=== PATIENT | female | born 1960 | race Caucasian/White ===

== ENCOUNTER 2020-03-10 09:59 | Outpatient (REF) | payer BC, SELFPAY ==
--- NOTE | 2020-03-10 09:20 | PAPFT_PTH ---
PATIENT: Maci Aranda LOC: [facility] U#:[id number] AGE/SX: 59/F ROOM: RE03/10/[address]: Sumi Montemayor NP : 1960 BED: DIS: 03/10/2020 SPEC #: [id number] RECD: 03/10/20 13:10 STATUS: BRANDEN REKenji #: [id number] SHAW: 03/10/20 09:[address]: Sumi Montemayor NP DEPT: [facility] Cytology RECD BY: Felicita Terrazas ENTERED: 03/10/20 13:11 SP TYPE: PAPFT OTHR DR: Cody Taveras Tissues: 1 - CX/ENDOCX FOR PAP SMEARS Procedures: PAP THIN PREP/[facility] Screening HPV DNA PROBE Comments: [id number] ([id number] [facility])
== END 2020-03-10 10:19 ==
LOC: LBN 09:59
PROVIDERS: PCP Family Medicine; Visit Provider Nurse Practitioner Women's Health
DX: Z12.4 Encounter for screening for malignant neoplasm of cervix (principal); Z11.51 Encounter for screening for human papillomavirus (HPV)
CPT/HCPCS: 88142; 87624

== ENCOUNTER 2020-03-10 18:21 | Outpatient (CLI) | payer BC, SELFPAY ==
--- NOTE | 2020-03-10 11:30 | DI.MAMMO_ITS ---
EXAM: MAMMO SCREENING CLINICAL HISTORY: screening TECHNIQUE: Mammograms were interpreted according to the usual protocol including computer analysis w [employer] CAD system, tomosynthesis and C-view imaging. COMPARISON: 2013 and 2016 FINDINGS: The breasts are composed of mainly fatty density , Breast Density category A. No suspicious masses or suspicious microcalcifications are seen. Skin calcifications are incidentall y noted in the inframammary fold. No skin thickening or abnormal axillary lymph nodes are seen. There has been no significant change from prior exams. IMPRESSION: BI-RADS Category 1, Negative mammogram Yearly screening mammography is recommended. Breast Density - Category A, fatty density. A negative radiographic report should not delay biopsy if a dominant or clinically suspicious mass is present. Up to ten percent of cancers are not identified on mammography. A negative report may reinforce clinical impression. Adenosis and dense breasts may obscure an underlying neoplasm. False positive reports average 6 to 10%. Patient will receive a letter notifying them of these results.
== END 2020-03-10 18:41 ==
PROVIDERS: PCP Family Medicine; Visit Provider Nurse Practitioner Women's Health
DX: Z12.31 Encounter for screening mammogram for malignant neoplasm of breast (principal)
CPT/HCPCS: 77063; 77067

== ENCOUNTER 2020-11-13 15:40 | Outpatient (REF) | payer SELFPAY | END 2020-11-13 15:41 | disposition home or self-care (01) | LOC: LBN 15:40 | PROVIDERS: PCP Family Medicine; Visit Provider Obstetrics & Gynecology | DX: R35.0 Frequency of micturition (principal) | CPT/HCPCS: 87077; 87086; 87186 ==

== ENCOUNTER 2021-03-17 00:36 | Outpatient (CLI) | payer OTHER, SELFPAY ==
--- NOTE | 2021-03-17 08:30 | DI.MAMMO_ITS ---
Exam(s) MAMMO SCREENING EXAM: MAMMO SCREENING CLINICAL HISTORY: screening TECHNIQUE: Bilateral full field digital CC and MLO mammographic images were obtained with 3D tomosyn thesis and utilizing computer aided detection (CAD). COMPARISON: Available for comparison. FINDINGS: Masses/Architectural Distortion: None seen. Microcalcifications: No suspicious pleomorphic-type are seen. Skin Thickening/Nipple Retraction: None. IMPRESSION: 1. No significant interval change with no specific features of malignancy noted. 2. Unless there is more urgent need, screening mammography is recommended, as per [place] [employer] guidelines. BI-RADS Category 1 - Negative Breast Density - Category A - Almost entirely fatty Breast density category C or D implies that the patient has dense breast tissue. Dense breast tissue is very common and is not abnormal but dense breast tissue can make it harder to find cancer on a ma mmogram. Also, dense breast tissue may increase their breast cancer risk. This information about the result of the mammogram report was provided to the patient to raise their awareness. Use this report when you speak with the patient about their risks for breast cancer, which includes their family hist ory. At that time, you may recommend for more screening tests (Ultrasound or MRI) as they might be us eful based on their risk. A negative radiographic report should not delay biopsy if a dominant or clinically suspicious mass is present. Up to ten percent of cancers are not identified on mammography. A negative report may reinforce clinical impression. Adenosis and dense breasts may obscure an underlying neoplasm. False positive reports average 6 to 10%. Patient will receive a letter notifying them of these results.
== END 2021-03-17 00:56 ==
PROVIDERS: PCP Family Medicine; Visit Provider Obstetrics & Gynecology
DX: Z12.31 Encounter for screening mammogram for malignant neoplasm of breast (principal)
CPT/HCPCS: 77063; 77067

== ENCOUNTER 2021-07-29 02:26 | Outpatient (CLI) | payer OTHER, SELFPAY ==
[2021-07-29 12:49] LABS: Source Nasal/Nares
[2021-07-29 16:31] LABS: COVID-19 PCR Negative (Negative)
== END 2021-07-29 02:27 | disposition home or self-care (01) ==
LOC: LBO 02:27
PROVIDERS: PCP Family Medicine; Visit Provider Surgery
DX: Z20.822 Contact with and (suspected) exposure to COVID-19 (principal); Z01.818 Encounter for other preprocedural examination
CPT/HCPCS: 87635

== ENCOUNTER 2021-07-31 08:54 | Day surgery (SDC) | payer OTHER, SELFPAY ==
[2021-07-31 09:11] VITALS: BP 152/83; PULSE 18; RESP 18; TEMP 36.3; O2SAT 94
[2021-07-31] MEDS: Lactated Ringers 1,000 ML 80 ML IV (09:32)
--- NOTE | 2021-07-31 10:47 | W.ANESPRE ---
General Info Date of Service Date Performed: 07/31/21 Height: 5 ft 10 in Weight: 119.1 kg Body Mass Index (BMI): 37.6 Surgical Procedure: Operation Date: 07/31/21 09:35 Proposed Procedure Side Surgeon benedicto Dalton DO Meds Allergies and Home Medications Allergies Allergy/AdvReac Type Severity Reaction Status Date / Time Sulfa (Sulfonamide Allergy Intermediate unk Verified 07/31/21 09:10 Antibiotics) Current Visit Medications: Current Medications Generic Name Dose Route Start Last Admin Trade Name Freq PRN Reason Stop Dose Admin Hyoscyamine Sulfate 0.125 mg 07/30/21 22:28 Hyoscyamine 0.125 Mg Sl/Oral/Chew SL DIRECTED PRN Ringer's Solution 1,000 mls @ 80 mls/hr 07/31/21 06:00 07/31/21 09:32 IV 08/29/21 23:59 80 mls/hr INFUSION KILLIAN Administration IV Miscellaneous Supplies 1 each 07/31/21 06:00 Iv Access IV 08/29/21 23:59 DIRECTED KILLIAN Ondansetron HCl 4 mg 07/30/21 22:28 Ondansetron 4 Mg/2 Ml Vial IVP Q4H PRN PRN Nausea / Vomiting Sodium Chloride 0 ml 07/31/21 06:00 Normal Saline Flush 10 Ml Syr IV 08/29/21 23:59 PRN PRN Sodium Chloride 0 ml 07/31/21 06:00 Normal Saline 10 Ml Vial IJ 08/29/21 23:59 DIRECTED PRN Sterile Water 0 ml 07/31/21 06:00 Water,Injection,Sterile 10 Ml Vial IJ 08/29/21 23:59 DIRECTED PRN PFSH Active Problems Active Problems: Problem Status Onset Code Colitis 01/03/14 K52.9 Medical History Medical History Colitis (01/03/14) Hx - Dx by Gastro at [facility] Displaced fracture of head of left radius, subsequent encounter for closed fracture with routine healing (09/26/15) Surgical History Surgical History Oophrectomy, Right (~2008) Laproscopic - Cyst - Dr Christine Tobacco Smoking/Tobacco Use Status: Never Alcohol Alcohol Intake: current Alcohol intake frequency: a few times a week Alcohol type: beer Substance Use Substance use: Never Prental History History 0 Para Hx # Term Pregnancies Multiple births Hx # Pregnancies Ectopic pregnancies AB induced Hx Number of Living Children AB spontaneous Vital Signs and Lab Results Vital Signs Most Recent Vital Signs in EMR: Most Recent Vital Signs Temp Pulse Resp BP Pulse Ox 36.3 C L 18 L 18 152/83 H 94 07/31/21 09:11 07/31/21 09:11 07/31/21 09:11 07/31/21 09:11 07/31/21 09:11 Lab Results Blood Type / Crossmatch: No Data to Display Complete Blood Count: No Data to Display Complete Metabolic Panel: No Data to Display Liver Function Panel: No Data to Display Coagulation Panel: No Data to Display Cardiac Panel: No Data to Display Arterial Blood Gas: No Data to Display Venous Blood Gas: No Data to Display Pancreas Panel: No Data to Display Thyroid Panel: No Data to Display Infectious Disease: Coronavirus (COVID-19)(PCR) Negative (Negative) 07/29/21 08:56 07/29/21 Coronavirus 2019 Source Nasal/Nares 07/29/21 08:56 07/29/21 Blood Cultures: No Data to Display Toxicology Panel: No Data to Display Anesthesia Assessment and Plan Anesthesia History Personal History: No History of Anesthesia Complications Family History: No Family History of Anesthesia Complications Exercise Tolerance Exercise Tolerance: Metabolic Equivalents>4 Pertinent Negatives Pertinent Negatives: No Symptoms of GERD, No Major Cardiovascular Symptoms or Complaints, No Major Pulmonary Symptoms or Complaints and No History of CVA/TIA Cardiac & Pulmonary Exam Cardiac Exam: Normal S1/S2 Heart Sounds Pulmonary Exam: Clear Bilateral Breath Sounds Implantable Cardiac Device Does patient have a Pacemaker or an ICD?: No Airway Exam Known Difficult Airway: No Mallampati Class: 4 Mouth Opening: Normal (> 3cm) Thyromental Distance: Less than 3 cm Neck Range of Motion: Full ROM Neck Circumference: Thick Teeth Condition: Normal Dentition Airway Comments: *#11 & #21 CAPPED 4 additional teeth in the back capped ASA Classification ASA Score: ASA 2 Emergency Case?: No NPO Status NPO Status: NPO Clears >2 hours, Solids >8 hours Anesthesia Plan Resuscitation Status: Full Code Anesthesia Technique: General Anesthesia Airway Planned: Natural Airway Monitors Used: Standard Monitors
[2021-07-31 10:50] VITALS: BMI 37.6
--- NOTE | 2021-07-31 11:28 | BOWEL_PTH ---
PATIENT: Maci Aranda LOC: [facility] U#:[id number] AGE/SX: 60/F ROOM: RE07/31/[address]: Melodie Dalton : 1960 BED: DIS: 07/31/2021 SPEC #: [id number] RECD: 07/31/21 12:51 STATUS: BRANDEN REQ #: [id number] SHAW: 07/31/21 11:[address]: Melodie Datlon DEPT: Surgical Specimen RECD BY: Felicita Terrazas ENTERED: 07/31/21 12:55 SP TYPE: Bowel OTHR DR: None Tissues: 1 - BIOPSY BOWEL 2 - BIOPSY BOWEL 3 - BIOPSY BOWEL 4 - BIOPSY BOWEL 5 - BIOPSY BOWEL 6 - BIOPSY BOWEL 7 - BIOPSY BOWEL 8 - BIOPSY BOWEL 9 - BIOPSY BOWEL 10 - BIOPSY BOWEL 11 - BIOPSY BOWEL Procedures: GROSS AND MICRO LEVEL 4 Comments: [id number]
[2021-07-31 11:51] VITALS: BP 110/72; PULSE 72; RESP 16; TEMP 36.4; O2SAT 94
--- NOTE | 2021-07-31 11:53 | W.ANESPOSTOP ---
Postoperative Evaluation Date, Time and Location Date Performed: 07/31/21 Time Performed: 11:53 Patient Location: Day Surgery Unit Vital Signs Most Recent Imported Vital Signs: Most Recent Vital Signs Temp Pulse Resp BP Pulse Ox 36.3 C L 18 L 18 152/83 H 94 07/31/21 09:11 07/31/21 09:11 07/31/21 09:11 07/31/21 09:11 07/31/21 09:11 Most Recent Manually Entered Vital Signs: Adult Blood Pressure: 110/72 Heart Rate: 73 Respirations: 10 Oxygen Saturation (%): 100 Temperature (C): 36.4 C Pain Score (0-10 Scale): 0 Pain Score Most Recent Pain Score: Most Recent Pain Score Pain Level 0 07/31/21 09:11 Assessment Mental Status: Awake (Alert & Oriented to Patient Baseline) Airway and Respiratory Function: Patent airway with normal (patient baseline) respiratory exam Cardiovascular Function: Hemodynamically Stable Hydration Status: Adequately Hydrated Nausea & Vomiting: No Nausea or Vomiting Pain: Pt. Denies Any Pain Peripheral Nerve Block: Patient did not receive a nerve block
[2021-07-31 11:54] VITALS: BP 110/72; PULSE 73; RESP 10; TEMPC 36.4; O2SAT 100
--- NOTE | 2021-07-31 12:09 | W.COLOREPORT ---
Colonoscopy Report Date of procedure: 07/31/21 Pre-op diagnosis general: hx of Chron's Post-op diagnosis procedure note: same Surgeon: Melodie Dalton Anesthesia Type: General:No Airway Pathology: other Complications: None Disposition: same day Prep: Miralax/Dulcolax Retraction Time: 12 Procedure Description: After informed consent was obtained the patient was taken to the procedure room and placed in a left decubitous position. Monitors were applied and a time out was done. The patients name, date of , procedure, allergies to medications and metal in their body was reviewed. The patient was then sedated. Once sedated and comfortable a rectal exam was done. External exam was normal. Internal exam revealed a normal sphincter tone and no palpable masses. The scope was then introduced and retrofelexed. internal hemorrhoids were identified. The scope was then advanced to the cecum without difficulty. The TI and appendiceal orifice were identified. The prep was be BPS 1 in all segments for a total of 3. There was a significant amount of fibrous material that continue to clog the scope. Biopsies were taken every 10 cm starting in the cecum. At 50 cm to 30 cm she had a area of slight erythema of the mucosa. There was also changes noted with Pseudopolyposis. 3 of the these polyps were sampled-they are removed with a cold biting forcep. All specimen is retrieved and no bleeding is noted. There is some mild irritation of the mucosa in this area as well. There is no signs of old or active gross bleeding. The scope was then slowly retracted over 12 minutes back into the rectum. There are no AVMs, diverticula, or adenomatous polyps visualized today. The scope was removed and the patient was woken up and taken back to Same day surgery in stable condition. The patient tolerated the procedure well and there were no immediate complications. Follow up: The patient should follow up in 5-10, path pd years unless they develop changes in bowel habits or other new gastrointestinal complaints.
--- NOTE | 2021-07-31 12:12 | PDOC.DSDIS_ITS ---
Discharge Plan Disposition Patient Disposition: HOME Condition: Good Discharge Details Reason For Visit: colon scope Attending Provider: Melodie Dalton Primary Care Provider: None,None Discharge Instructions Additional Instructions: DSU Colonoscopy Post- Op Instructions Instructions for Everyone who is given Anesthesia: For your safety, please do the following for the next twenty-four (24) hours: *Do Not operate a motor vehicle (car, truck, motorcycle, etc.) *Do Not drink alcoholic beverages or use any recreational drugs for the first 24 hours or while taking pain medications. The medications in your body may have a reaction that can be dangerous. *Do Not make any important decisions or sign any important papers. 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 1. No lifting over 20 pounds or strenuous activity for the first 24 hours after your procedure. After 24 hours there are no restrictions on your activity but you may feel fatigued for a few days. 2. After you arrive home you may have a light meal and return to your normal diet as you can tolerate it without feeling sick to your stomach. 3. You may have a bloated, gaseous feeling in your belly (abdomen) after a colonoscopy. Passing gas and belching will help. Walking or lying down on your left side with your knees flexed may relieve the discomfort. Call the office at [phone] (Office) or [phone] (Hospital) right away if you notice any of the following: a.Vomiting of blood or ?coffee ground stools?. b.Rectal bleeding 1Tbsp, blood clots or continuous bleeding. c.Severe belly (abdominal) pain. d.A hard distended belly (abdomen) and an inability to pass gas. 4. Please don?t expect to have a normal BM (bowel movement) for 2-3 days after your procedure. 5. If there are questions regarding the findings of your procedure, please contact your doctor 6. If you are unable to contact your doctor with a problem, contact the hospital at [phone]. 7. Continue all your regular medications unless directed otherwise. I understand the above instructions and have no questions. Signature of Patient or Adult Escort Name of Responsible Adult Escort Signature of Nurse Date/Time Activity:: see above Diet:: see above Discharge Orders Discharge Orders: Discharge Order (Routine); Ordered 07/30/21 Ordered By: Melodie Dalton
[2021-07-31 12:24] VITALS: BP 137/73; PULSE 63; RESP 16; TEMP 36.4; O2SAT 96
== END 2021-07-31 12:46 | disposition home or self-care (01) ==
PROVIDERS: Visit Provider Surgery
PROC: 0DJD8ZZ Inspection of Lower Intestinal Tract, Via Natural or Artificial Opening Endoscopic (ICD-10-PCS; CPT 45378; principal; 2021-07-31 09:30)
DX: Z87.19 Personal history of other diseases of the digestive system (principal); K63.5 Polyp of colon; K64.8 Other hemorrhoids; K63.89 Other specified diseases of intestine
CPT/HCPCS: 45380; 88305; J2001

== ENCOUNTER 2021-08-26 02:02 | Outpatient (CLI) | payer OTHER, SELFPAY ==
[2021-08-26 11:51] LABS: Abs Immature Grans 0.02 10^3/uL (0.0-0.06); Absolute Basophil Count 0.04 10^3/uL (0.0-0.2); Absolute Eosinophil Count 0.17 10^3/uL (0.0-0.7); Absolute Lymphocyte Count 2.39 10^3/uL (1.2-3.4); Absolute Monocyte Count 0.44 10^3/uL (0.1-0.8); Absolute Neutrophil Count 4.11 10^3/uL (1.2-6.7); Basophils % 0.6; Eosinophils % 2.4; HGB 13.2 g/dL (11.2-15.7); Immature Grans % 0.3; Lymphocytes % 33.3; MCH 32.1 pg (27.0-33.0); MCV 97 fL (80-95); MPV 11.4 fL (8.0-11.0); Monocytes % 6.1; Neutrophils % 57.3; Platelet Count 237 10^3/uL (130-400); RBC 4.11 10^6/uL (3.93-5.22); RDW-SD 42.9 fL; WBC 7.17 10^3/uL (4.4-10.8)
[2021-08-26 12:20] LABS: ALT 39 U/L (14-59); AST 17 U/L (15-37); Albumin 3.8 g/dL (3.4-5.0); Alkaline Phosphatase 88 U/L (46-116); Anion Gap 7.1 mmol/L (3-11); BUN 9 mg/dL (7-18); Bilirubin, Total 0.3 mg/dL (0.2-1.0); C-Reactive Protein 0.48 mg/dL (0.0-0.3); CO2 29.9 mmol/L (21.0-32.0); CREATININE 0.9 mg/dL (0.55-1.02); Calcium 8.4 mg/dL (8.5-10.1); Chloride 106 mmol/L (98-107); Glucose 98 mg/dL (74-106); Potassium 4.2 mmol/L (3.5-5.1); Sodium 143 mmol/L (136-145); Total Protein 6.8 g/dL (6.4-8.2)
[2021-08-27 12:01] LABS: ANCA Interpretation Negative (Negative)
[2021-08-31 12:44] LABS: IgA 151 mg/dL (85-499); Interpretation (See Note); Tissue Transglutaminase IgA <1.2 U/mL (<4.0)
== END 2021-08-26 02:03 | disposition home or self-care (01) ==
LOC: LBO 02:03
PROVIDERS: Visit Provider Surgery
DX: K52.9 Noninfective gastroenteritis and colitis, unspecified (principal); K59.89 Other specified functional intestinal disorders; Z87.19 Personal history of other diseases of the digestive system
CPT/HCPCS: 36415; 80053; 82784; 83516; 86255; 85025; 86140

== ENCOUNTER → 2022-03-18 03:11 | Outpatient (CLI) | payer OTHER, SELFPAY ==
--- NOTE | 2022-03-18 08:35 | DI.MAMMO_ITS ---
Exam(s) MAMMO SCREENING EXAM: MAMMO SCREENING CLINICAL HISTORY: screening,z12.39 TECHNIQUE: Mammograms were interpreted according to the usual protocol including computer analysis w [employer] system, tomosynthesis and C-view imaging. COMPARISON: FINDINGS: The breasts are of moderate density with fairly symmetrical distribution of fibroglandular tissue. N o dominant mass or clumped intramammary microcalcification is seen. Current examination is compared with previous examinations including February 2021 and there has been no gross interval change in rohit earance in comparison with the prior studies. IMPRESSION: No specific evidence of malignancy at this time. Routine screening examinations are suggested at yea rly intervals in this age group according to the ACS ACR guidelines. BI-RADS Category 1 - Negative Breast Density - Category B - Scattered areas of fibroglandular density
== END ==
PROVIDERS: PCP Nurse Practitioner; Visit Provider Nurse Practitioner
DX: Z12.31 Encounter for screening mammogram for malignant neoplasm of breast (principal)
CPT/HCPCS: 77063; 77067

== ENCOUNTER 2022-03-18 03:36 | Outpatient (CLI) | payer OTHER, SELFPAY ==
[2022-03-18 08:33] LABS: Calculated LDL 98 mg/dL (<100); Cholesterol 178 mg/dL (<200); HDL Cholesterol 61 mg/dL (40-60); Triglyceride 97 mg/dL (<150)
== END 2022-03-18 03:37 | disposition home or self-care (01) ==
PROVIDERS: PCP Nurse Practitioner; Visit Provider Nurse Practitioner
DX: Z13.220 Encounter for screening for lipoid disorders (principal)
CPT/HCPCS: 36415; 80061

== ENCOUNTER 2022-12-10 15:48 | Outpatient (REF) | payer OTHER, SELFPAY | END 2022-12-10 15:49 | disposition home or self-care (01) | LOC: LBN 15:48 | PROVIDERS: PCP Nurse Practitioner; Visit Provider Advanced Practice Midwife | DX: R10.31 Right lower quadrant pain (principal); R10.32 Left lower quadrant pain; R82.79 Other abnormal findings on microbiological examination of urine; R30.0 Dysuria | CPT/HCPCS: 87086 ==

== ENCOUNTER 2023-09-05 05:02 | Outpatient (CLI) | payer OTHER, SELFPAY ==
[2023-09-05 14:15] LABS: HCT 43.4 % (36.0-46.0); HGB 14.9 g/dL (11.2-15.7); MCH 32.3 pg (27.0-33.0); MCHC 34.3 % (32.0-36.0); MCV 94 fL (80-95); MPV 11.5 fL (8.0-11.0); Platelet Count 241 10^3/uL (130-400); RBC 4.62 10^6/uL (3.93-5.22); RDW 12.5 % (11.7-14.6); RDW-SD 43.1 fL; WBC 7.02 10^3/uL (4.4-10.8)
[2023-09-05 14:19] LABS: Bilirubin Negative (Negative); Blood Negative (Negative); Clarity Clear (Clear); Glucose Negative (Negative); Ketones Negative (Negative); Leukocyte Esterase Negative (Negative); Nitrite Negative (Negative); Urobilinogen 0.2 mg/dL (Up to 0.2)
--- NOTE | 2023-09-05 14:20 | DI.RAD_ITS ---
Exam(s) XR CHEST 2V PA LATERAL EXAM: XR CHEST 2V PA LATERAL CLINICAL HISTORY: peripheral edema,r60.0. TECHNIQUE: 2D digital imaging was performed. COMPARISON: No exams were available for comparison FINDINGS: 2 views: Heart size is normal. The mediastinum is not widened. Lungs are clear. No infiltrates nor pleural effusions. IMPRESSION: No acute pulmonary findings. DATA REPOSITORY: RADIATION DOSE DELIVERED:
[2023-09-05 14:28] LABS: Hemoglobin A1C 6.1 % (<5.7)
[2023-09-05 14:38] LABS: ALT 49 U/L (14-59); AST 21 U/L (15-37); Albumin 4.5 g/dL (3.4-5.0); Alkaline Phosphatase 99 U/L (46-116); Bilirubin, Direct 0.2 mg/dL (0.0-0.2); Bilirubin, Total 0.7 mg/dL (0.2-1.0); C-Reactive Protein 0.51 mg/dL (<or=0.5); TSH 1.76 uIU/Ml (0.36-3.74)
[2023-09-05 14:52] LABS: D-Dimer 549 ng/mlFEU (<500)
== END 2023-09-05 05:03 | disposition home or self-care (01) ==
PROVIDERS: PCP Nurse Practitioner; Visit Provider Emergency Medicine
DX: R60.0 Localized edema (principal); E03.9 Hypothyroidism, unspecified; E11.9 Type 2 diabetes mellitus without complications; R30.0 Dysuria
CPT/HCPCS: 36415; 80076; 85027; 71046; 81003; 83036; 84443; 85379; 86140

== ENCOUNTER 2024-03-22 02:18 | Outpatient (CLI) | payer OTHER, SELFPAY ==
--- NOTE | 2024-03-22 09:00 | DI.DEXA_ITS ---
Exam(s) XR DEXA BONE DENSITY W/WO KEVIN EXAM: XR DEXA BONE DENSITY W/WO KEVIN CLINICAL HISTORY: screening for osteoporosis in postmenopausal state,z78.0 TECHNIQUE: COMPARISON: No exams were available for comparison FINDINGS: Lateral Spine Image: Unremarkable. No compression deformities identified. Left hip: Total T-Score: 0.1 Total Z-Score: 1.3 T- and Z-scores: There is no evidence of osteoporosis. Lumbar Spine: Total T-Score: -0.2 Total Z-Score: 1.6 T- and Z-scores: Within normal limits. IMPRESSION: No evidence of osteoporosis.
--- NOTE | 2024-03-22 15:21 | DI.MAMMO_ITS ---
Exam(s) MAMMO SCREENING EXAM: MAMMO SCREENING CLINICAL HISTORY: screening,z12.39 TECHNIQUE: Mammograms were interpreted according to the usual protocol including computer analysis w [employer] CAD system, tomosynthesis and C-view imaging. COMPARISON: 2016 through 2021 FINDINGS: The breasts are composed of mainly fatty density , Breast Density category A. No suspicious masses or suspicious microcalcifications are seen. No skin thickening or abnormal axillary lymph nodes are seen. There has been no significant change from prior exams. IMPRESSION: BI-RADS Category 1, Negative mammogram Yearly screening mammography is recommended. Breast Density - Category A, fatty density. A negative radiographic report should not delay biopsy if a dominant or clinically suspicious mass is present. Up to ten percent of cancers are not identified on mammography. A negative report may reinforce clinical impression. Adenosis and dense breasts may obscure an underlying neoplasm. False positive reports average 6 to 10%. Patient will receive a letter notifying them of these results.
== END 2024-03-22 02:38 ==
LOC: DI 02:18
PROVIDERS: PCP Nurse Practitioner; Visit Provider Nurse Practitioner
DX: Z78.0 Asymptomatic menopausal state (principal); Z12.31 Encounter for screening mammogram for malignant neoplasm of breast; Z13.820 Encounter for screening for osteoporosis
CPT/HCPCS: 77063; 77067; 77080